=== PATIENT | male | born 1985 | race Caucasian/White ===

== ENCOUNTER 2017-05-04 12:02 | Emergency (ER) | payer OTHER ==
[~2017-05-04] VITALS: Ht 177.8 cm; Wt 88.5 kg
[~2017-05-04 12:02] MED LIST: CLARITIN10 MG PO; PREDNISONE 20MG20 MG PO; VISTARIL25 MG PO
[2017-05-04 12:17] VITALS: BP 137/88
--- NOTE | 2017-05-04 12:38 | RADIOLOGY REPORT ---
EXAMINATION: XR CHEST CLINICAL INFORMATION: Fever and cough COMPARISON: 01/18/2010 TECHNIQUE: 2 views of the chest were obtained. FINDINGS: No pneumonia. Chronic progressive bronchial wall thickening with developing hyperinflation suggests obstructive lung disease. Consider spirometry. Heart and mediastinum within normal limits. Stable moderately severe idiopathic scoliosis. Nonobstructive gas pattern. IMPRESSION: No focal pneumonia. Developing bronchial wall thickening and hyperinflation suggests COPD.
--- NOTE | 2017-05-04 12:55 | ED GENERAL ADULT ---
History of Present Illness General Chief Complaint: General Adult Stated Complaint: WHEEZING; NAUSEA; DIAHHREA Source: patient, old records Exam Limitations: no limitations Vital Signs & Intake/Output Vital Signs & Intake/Output Vital Signs Date Time Temp Pulse Resp B/P B/P Pulse O2 O2 Flow FiO2 Mean Ox Delivery Rate 05/04 1452 95 05/04 1217 96.5 94 20 137/88 95 Room Air Room Air Allergies Coded Allergies: nut - unspecified (Severe, BRAZIL NUTS - ANAPHALAXIS, TREE NUTS, NUTS 05/04/17) Reconcile Medications Methylprednisolone. (Medrol) 4 MG TAB.DS.PK 1 DP PO AD bronchitis 6 on day 1 then reduce by one tablet daily until gone Triage Note: PT TO ED FOR C/C OF NON-PRODUCTIVE COUGH, NAUSEA, DIARRHEA (DENIES BLOOD IN STOOL), NIGHT SWEATS, CHILLS, FEELING LIKE HE'S GOING TO PASS OUT. CHEST PRESSURE. Triage Nurses Notes Reviewed? yes Onset: Last week Duration: day(s): Timing: recent history Severity: moderate Modifying Factors: Improves With: medication (tried nyquil). HPI: 32-year-old male presents to emergency department complaining of sore throat, nonbloody diarrhea, night sweats, fevers, chills, myalgias 6 days. Patient states that symptoms improved yesterday however today symptoms have worsened again. Today while at work the patient felt dizzy, lightheaded, like he may pass out. Cough was initially productive however currently dry. He has had increasing dyspnea and cough over the past week. 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 He uses cocaine daily however has not used since symptoms began 5 days ago. Also admits to daily use of marijuana. He is a current smoker however has reduced his smoking to 5 cigarettes a day due to dyspnea. He also complains of chest pressure and tightness. He denies sick contacts. no recent eoth or other drug use. (SHANELLE NELSON,CESAR) Past History Travel History Traveled to [place] past 21 day No Medical History Any Pertinent Medical History? see below for history Neurological: seizure EENT: NONE Cardiovascular: NONE Respiratory: asthma Gastrointestinal: ESOPHAGITIS Hepatic: NONE Renal: NONE Musculoskeletal: NONE Psychiatric: polysubstance abuse Endocrine: NONE Blood Disorders: NONE Cancer(s): NONE History of CDIFF: No Surgical History Surgical History: non-contributory Psychosocial History What is your primary language Peruvian Tobacco Use: Current Daily Use Daily Tobacco Use Amount/Type: => 5 Cigarettes daily ETOH Use: denies use Illicit Drug Use: cocaine, marijuana, PRESCRIPTION PILLS Family History Hx Contributory? No (CESAR CARRASCO) Review of Systems Review of Systems Constitutional: Reports: see HPI. EENTM: Reports: see HPI. Respiratory: Reports: see HPI. Cardiovascular: Reports: see HPI. GI: Reports: see HPI. Genitourinary: Reports: no symptoms. Musculoskeletal: Reports: see HPI. Skin: Reports: no symptoms. Neurological/Psychological: Reports: see HPI. Hematologic/Endocrine: Reports: no symptoms. Immunologic/Allergic: Reports: no symptoms. All Other Systems: Reviewed and Negative Comments Review of systems: See HPI, All other systems negative. Constitutional, no chills no fever, no malaise HEENT: no sore throat no congestion, no ear pain Cardiovascular: No chest pain , no palpitation Skin: no rashes, no change in skin Respiratory: No dyspnea no cough no sputum no hemoptysis GI: nausea no vomiting diarrhea, no bloating/constipation : No dysuria Muscle skeletal: No joint pain, no joint swelling, no back pain, no neck pain, Neurologic: No numbness , no headache Psych: No stress Heme/endocrine: No bruising Immunology: No lymphadenopathy (CESAR CARRASCO) Physical Exam Physical Exam General Appearance: well developed/nourished, no apparent distress, alert, awake Comments: Well-developed well-nourished person in no acute distress HEENT: Normal EENT exam; PERRL, EOMI, no nystagmus. HEAD is atraumatic. moist mucous membranes. Neck: Supple, nontender anterior cervical lymph nodes, normal range of motion without pain or tenderness Back: Nontender, no CVA tenderness. Full range of motion Cardiovascular: Regular rate and rhythms no murmurs rubs Respiratory: Chest nontender.There were no bony deformities, no asymmetry. No respiratory distress. Patient speaking in full complete sentences. Inspiratory and expiratory wheezes throughout bilaterally Abdomen: Soft, nontender nondistended, no appreciable organomegaly. Normal bowel sounds. No rebound/guarding,No ascites. Extremity: No edema, full range of motion of extremities, strength grossly normal noted to bilateral upper and lower extremities Neuro: Alert oriented x3, motor sensory normal, There were no obvious focal neurologic abnormalities. Skin: No appreciable rash on exposed skin, skin is warm, diaphoretic. Psych: Mood and affect is normal, memory and judgment is normal. Core Measures ACS in differential dx? No CVA/TIA Diagnosis: No Severe Sepsis Present: No Septic Shock Present: No (CESAR CARRASCO) Progress Differential Diagnoses I considered the following diagnoses in my evaluation of the patient: [ bronchitis, PNA, strep pharyngitis, influenza, mononucleosis, lyme disease, viral syndrome, drug withdrawal] Plan of Care: Orders Procedure Date/time Status LYME TITRE 05/04 1325 Active COMPREHENSIVE METABOLIC PANEL 05/04 1325 Complete CBC WITHOUT DIFFERENTIAL 05/04 1325 Complete Laboratory Tests 05/04/17 1337: Anion Gap 12, Estimated GFR > 60, BUN/Creatinine Ratio 12.5, Glucose 104 H, Calcium 9.9, Total Bilirubin 0.7, AST 30, ALT 37, Alkaline Phosphatase 61, Total Protein 7.1, Albumin 4.2, Globulin 2.9, Albumin/Globulin Ratio 1.4, CBC w Diff NO MAN DIFF REQ, RBC 5.72, MCV 90.3, MCH 30.3, RDW 12.8, MPV 8.0, Gran % 66.9, Lymphocytes % 23.7, Monocytes % 8.8, Eosinophils % 0.4, Basophils % 0.2, Absolute Granulocytes 6.5, Absolute Lymphocytes 2.3, Absolute Monocytes 0.9 H, Absolute Eosinophils 0, Absolute Basophils 0, PUBS MCHC 33.6, Lyme Disease Antibody Pending Labs ordered patient is declining IV fluids when offered, noted be wheezing DuoNeb ordered 05/04/2017 2:04:59 PM patient reported to have improvement in breathing after treatment pending labs pt feeling improved, d/w him at length all of his results, need for supprotive care, fluids, close f/u with pmd, pt is decling wishing to speak with crisis, declining detox resources. d/w the harm of further substancce and cocaine abuse. rx for medrol dose gloria, pt is declining inhaler. return precautions were dsicussed with the pt at length. he feels comfortable with discharge plan (CESAR CARRASCO) Diagnostic Imaging: Viewed by Me: Radiology Read. Discussed w/RAD: Radiology Read. CXR Impression: PATIENT: TAVARES UNGER PRESENT AGE: 32 PATIENT ACCOUNT NO: [id number] : 87 LOCATION: [facility] ORDERING PHYSICIAN: MICKI BURKS DO (TBS) SERVICE DATE: 05/04/17 EXAM TYPE: RAD - XRY-CHEST XRAY, PA AND LATERAL EXAMINATION: XR CHEST CLINICAL INFORMATION: Fever and cough COMPARISON: 01/18/2010 TECHNIQUE: 2 views of the chest were obtained. FINDINGS: No pneumonia. Chronic progressive bronchial wall thickening with developing hyperinflation suggests obstructive lung disease. Consider spirometry. Heart and mediastinum within normal limits. Stable moderately severe idiopathic scoliosis. Nonobstructive gas pattern. IMPRESSION: No focal pneumonia. Developing bronchial wall thickening and hyperinflation suggests COPD. DICTATED BY: MYA TABARES MD DATE/TIME DICTATED:05/04/171230 FAMILY WORKER:YEVGENIY DATE/TIME TRANSCRIBED:05/04/171230 CONFIDENTIAL, DO NOT COPY WITHOUT APPROPRIATE AUTHORIZATION. <Electronically signed in Other Vendor System> SIGNED BY: MYA TABARES MD 05/04/17 1238 Initial ED EKG: none Comments: 05/04/2017 1:35:55 PM Patient is diaphoretic however is sitting comfortably in bed, no acute distress. There is moderate wheezing throughout all lung burgos. He agrees with plan of care for DuoNeb, blood work, PO clear liquids. 05/04/2017 2:53:45 PM Patient tolerated breathing treatment well, reports increased dyspnea. She is sitting in chair comfortably, no distress during duration of visit. Patient agrees with plan of care, will take steroid pack. Based on CXR findings bronchitis is likely. Antibiotics are not necessary at this time. Suspicion for bacterial pneumonia, epiglottitis, STREP pharyngitis is low at this time given clinical presentation. (CESAR CARRASCO) Departure Departure Disposition: HOME OR SELF CARE Condition: Stable Clinical Impression Primary Impression: Bronchitis Referrals: PATIENT HAS NO PRIMARY CARE DR (PCP/Family) Additional Instructions: Take full steroid pack, increase rest and fluid intake, return with worsening symptoms or concerns. Follow up with your primary care doctor in 3 days. Departure Forms: Customer Survey General Discharge Information Prescriptions: Current Visit Scripts Methylprednisolone. (Medrol) 1 DP PO AD #1 DP 6 on day 1 then reduce by one tablet daily until gone (CESAR CARRASCO) PA/MANAGER DOCUMENT Co-Sign Statement Statement: ED Attending supervision documentation- [] I saw and evaluated the patient. I have also reviewed all the pertinent lab results and diagnostic results. I agree with the findings and the plan of care as documented in the PA's/MANAGER DOCUMENT's documentation. [X] I have reviewed the ED Record and agree with the PA's/MANAGER DOCUMENT's documentation. [] Additions or exceptions (if any) to the PAs/MANAGER DOCUMENT's note and plan are summarized below: [] (IVET COKER,JOSÉ MIGUEL) Critical Care Note Critical Care Note Critical Care Time: non-applicable (CESAR CARRASCO) ED Attending Observation Initial Observation Note: I have seen and personally examined TAVARES UNGER on 05/04/17 at 1455. I agree with the current emergency department documentation. The disposition (admission or discharge) is uncertain at this time, he needs a period of observation for the following reason(s): The ED Nurse caring for this patient has been personally informed as to what the patient is being observed for. (CESAR CARRASCO)
[2017-05-04 13:47] LABS: ABSOLUTE BASOPHIL COUNT 0 /CUMM (0.0-0.2); ABSOLUTE EOSINOPHIL COUNT 0 /CUMM (0.0-0.7); ABSOLUTE GRANULOCYTE CT 6.5 /CUMM (1.4-6.5); ABSOLUTE LYMPH COUNT 2.3 /CUMM (1.2-3.4); ABSOLUTE MONOCYTE COUNT 0.9 /CUMM (0.10-0.60); BASOPHIL % 0.2 % (0.0-2.0); EOSINOPHIL % 0.4 % (0-5); GRANULOCYTE % 66.9 % (42.2-75.2); HEMATOCRIT 51.7 % (42-52); MEAN CORPUSCULAR HGB 30.3 PG (27.0-31.0); MEAN CORPUSCULAR HGB CONC 33.6 G/DL (33.0-37.0); MEAN CORPUSCULAR VOLUME 90.3 FL (80.0-94.0); PLATELET COUNT 243 /CUMM (130-400); RBC DISTRIBUTION WIDTH 12.8 % (11.5-14.5); RED BLOOD CELL CT 5.72 /CUMM (4.70-6.10); WHITE BLOOD CELL COUNT 9.8 /CUMM (4.8-10.8)
[2017-05-04] MEDS ORDERED: MEDROL4 M2 PO (14:44)
== END 2017-05-04 14:40 ==
LOC: ERH 12:02
PROVIDERS: Physician Assistant Medical
DX: J40 Bronchitis, not specified as acute or chronic (principal); R07.89 Other chest pain
CPT/HCPCS: 1263; 86618

== ENCOUNTER 2017-06-19 06:07 | Emergency (ER) | payer OTHER ==
[~2017-06-19] VITALS: Ht 180.3 cm; Wt 90.7 kg
[~2017-06-19 06:07] MED LIST changes: +MEDROL4 M2 PO
[2017-06-19 06:23] VITALS: BP 146/84
--- NOTE | 2017-06-19 07:07 | ED UPPER/LOWER EXTREMITY COMPL ---
History of Present Illness General Chief Complaint: Lower Extremity Injury Stated Complaint: L KNEE PAIN Source: patient Exam Limitations: no limitations Vital Signs & Intake/Output Vital Signs & Intake/Output Vital Signs Date Time Temp Pulse Resp B/P B/P Pulse O2 O2 Flow FiO2 Mean Ox Delivery Rate 06/19 0626 98 Room Air 06/19 0623 98.2 94 18 146/84 97 Room Air Allergies Coded Allergies: nut - unspecified (Severe, BRAZIL NUTS - ANAPHALAXIS, TREE NUTS, NUTS 05/04/17) Reconcile Medications Hydrocodone/Acetaminophen (Vicodin 5-300 MG Tablet) 5 MG-300 MG TABLET 1 TAB PO BID PRN BREAKTHROUGH PAIN Methylprednisolone. (Medrol) 4 MG TAB.DS.PK 1 DP PO AD bronchitis 6 on day 1 then reduce by one tablet daily until gone Triage Note: PT FROM HOME C/O LT KNEE PAIN. 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 PT STATES HE WENT TO AN URGENT CARE CENTER WHERE THEY GAVE PT A BRACE. PT STATES BRACE HAS BEEN WORKING WELL ALONG WITH FLEXERIL, WHICH PT TOOK 3 PILLS OF 10MG TABS FLEXERIL LAST NIGHT AROUND 2230. PT WOKE UP AROUND 0400 TODAY AND THE PAIN WAS "UNBEARABLE" 09/01. PT HAS A HX OF POLYSUBSTANCE ABUSE. PT A&0X3, USING WHEELCHAIR TO WHEEL HIMSELF AROUND, NO ACUTE DISTRESS IN TRIAGE. PTS FATHER WITH PT. PT TO RM 1, AWAITING PROVIDER EVAL. Triage Nurses Notes Reviewed? 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 Was seen at urgent care, had neg xray done and given knee brace. Last night pain became much worse. No relief with flexeril and ibuprofen. Due to see Dr. Apodaca on Thursday. Past History Travel History Traveled to [place] past 21 day No Medical History Any Pertinent Medical History? see below for history Neurological: seizure EENT: NONE Cardiovascular: NONE Respiratory: asthma Gastrointestinal: ESOPHAGITIS Hepatic: NONE Renal: NONE Musculoskeletal: NONE Psychiatric: polysubstance abuse Endocrine: NONE Blood Disorders: NONE Cancer(s): NONE History of CDIFF: No Surgical History Surgical History: non-contributory Psychosocial History What is your primary language Rwandan Tobacco Use: Current Daily Use Daily Tobacco Use Amount/Type: => 5 Cigarettes daily ETOH Use: occasional use Illicit Drug Use: denies illicit drug use Family History Hx Contributory? No Review of Systems Review of Systems Constitutional: Denies: fever. EENTM: Reports: no symptoms. Respiratory: Reports: no symptoms. Cardiovascular: Reports: no symptoms. Gastrointestinal/Abdominal: Reports: no symptoms. Genitourinary: Reports: no symptoms. Musculoskeletal: Reports: joint pain, joint swelling. Skin: Reports: no symptoms. Neurological/Psychological: Reports: no symptoms. Hematologic/Endocrine: Denies: bruising, bleeding. Immunological: Reports: no symptoms. All Other Systems: Reviewed and Negative Physical Exam Physical Exam General Appearance: well developed/nourished, mild distress Head: atraumatic Eyes: Bilateral: PERRL, EOMI. Ears, Nose, Throat: normal pharynx, normal ENT inspection, hearing grossly normal Neck: normal inspection, supple Cardiovascular/Respiratory: regular rate/rhythm Back: normal inspection Leg Left: normal range of motion, normal inspection Leg Right: normal range of motion, normal inspection Hip Left: normal range of motion, normal inspection Hip Right: normal range of motion, normal inspection Knee Left: swelling, tenderness, TENDER ALONG PATELLA TENDON STABLE LIGAMENTOUS EXAMINATION Knee Right: normal range of motion, normal inspection Foot Left: normal inspection, normal range of motion Foot Right: normal inspection, normal range of motion Neurologic/Tendon: normal sensation, normal motor functions, normal tendon functions Skin: intact, normal color, warm/dry Lymphatic: no anterior cervical tobias Progress Differential Diagnosis: sprain, tendon injury, MENISCUS TEAR Plan of Care: Orders Procedure Date/time Status Durable Medical Equipment 06/19 713 Active Current Medications Sig/Shivani Start time Last Medication Dose Stop Time Status Admin Ketorolac 60 MG ONCE ONE 06/19 715 UNVr Tromethamine 06/19 716 (Toradol) Departure Departure Time of Disposition: 713 Disposition: HOME OR SELF CARE Condition: Stable Clinical Impression Primary Impression: Patellar tendinitis of left knee Referrals: PATIENT HAS NO PRIMARY CARE DR (PCP/Family) Additional Instructions: USE THE KNEE IMMOBILIZER AND CRUTCHES DIRECTED FOLLOW UP WITH YOUR APPOINTMENT WITH DR APODACA ON THURSDAY CONTINUE THE FLEXERIL AND IBUPROFEN. TAKE THE VICODIN FOR BREAKTHROUGH PAIN Departure Forms: Customer Survey General Discharge Information Prescriptions: Current Visit Scripts Hydrocodone/Acetaminophen (Vicodin 5-300 MG Tablet) 1 TAB PO BID PRN BREAKTHROUGH PAIN #10 TAB
[2017-06-19] MEDS ORDERED: VICODIN 5-3001 EACH PO (07:16)
== END 2017-06-19 07:25 ==
LOC: ERH 06:07
DX: M76.52 Patellar tendinitis, left knee (principal)
CPT/HCPCS: 96372; J1885